=== PATIENT | female | born 1975 | race Two or more races ===

== ENCOUNTER 2019-06-26 10:28 | Outpatient (CLI) | payer OTHER | END 2019-06-26 10:37 | disposition home or self-care (01) | LOC: SONOGRAMA 10:28 → MAMO-SONO 10:45 | DX: M25.551 Pain in right hip (principal); M25.552 Pain in left hip ==

== ENCOUNTER 2019-06-28 09:19 | Outpatient (CLI) | payer OTHER | END 2019-06-28 10:00 | disposition home or self-care (01) | LOC: NUCLEAR 09:19 | DX: I25.89 Other forms of chronic ischemic heart disease (principal); R94.31 Abnormal electrocardiogram [ECG] [EKG]; R00.2 Palpitations ==